=== PATIENT | female | born 1940 | race Caucasian/White ===

== ENCOUNTER → 2016-05-17 | Outpatient (CLI) | payer MEDICARE, BC ==
[~2016-05-17] MED LIST: ASPI81 PO; LIPI80TA16 PO
--- NOTE | 2016-05-27 13:13 | RSPPFT ---
DATE OF PROCEDURE: 05/17/16 COMMENTS: VOLUMES DYNAMIC: FVC and FEv1 normal. STATIC: TLC normal; VTG and RV mildly increased. FLOWS: FEV1% normal; FEF 25-75 mildly reduced. DIFFUSION: Very mildly reduced. FLOW VOLUME LOOP: Terminal airflow obstruction. IMPRESSION: Mild obstructive ventilatory defect with mild hyperinflation and a mild reduction in diffusion. There is some improvement post-bronchodilator.
== END ==
LOC: HRSP 13:05
PROVIDERS: ATTEND Internal Medicine
DX: J45.909 Unspecified asthma, uncomplicated (principal)
CPT/HCPCS: 94060; 94620; 94726; 94729; 95012